=== PATIENT | female | born 1995 | race Caucasian/White ===

== ENCOUNTER 2018-06-02 23:01 | Emergency (ER) | payer OTHER ==
[2018-06-02] MEDS ORDERED: SUMAtriptan SUCCINATE 6 MG/0.5 ML VIAL SQ ONE (23:20)
[2018-06-02] MEDS ORDERED: KETOROLAC TROMETHAMINE 60 MG/2 ML VIAL IM ONE (23:52)
[2018-06-02] MEDS ORDERED: ONDANSETRON HCL 4 MG TAB.RAPDIS PO ONE (23:52)
[2018-06-02] MEDS ORDERED: diphenhydrAMINE HCL 50 MG/ML VIAL IM ONE (23:52)
--- NOTE | 2018-06-02 23:55 | ED Physician Documentation ---
Headache - HISTORIAN Historian: patient - HPI Stated Complaint: Headache Chief Complaint: Headache Onset: days ago () New Gradual Onset: No Severity: severe Quality: similar to previous Further Comments: yes (22 year old female patient presents with complaint of headache for past year. Was worked up by neurology with no findings. Has not seen PCP since last neurology visit. Is not on maintence medication. Rate pain 8/10. C/O photophobia and nausea. Is not covering eyes with light on.) - ROS NEURO/PSYCH: denies: confusion, anxiety, depression, fainting, other EYES/ENT: denies: sore throat, difficulty swallowing, sinus pain, drainage, other CVS/RESP: none GI/: denies: abdominal pain, diarrhea, problems urinating, incontinence, other MS/SKIN/LYMPH: denies: muscle aches, back pain, rash, skin lesions, swollen glands, other - PAST HX Medical History: hypertension, other (depression; headaches) Allergies/Adverse Reactions: Allergies Allergy/AdvReac Type Severity Reaction Status Date / Time No Known Allergies Allergy Unverified 06/02/18 23:24 Home Medications: Ambulatory Orders Medication Instructions Recorded FLUoxetine HCL [Prozac] 60 mg PO QD 06/02/18 Metoprolol Tartrate [Lopressor] 25 mg PO BID 06/02/18 clonazePAM [Klonopin] 0.5 mg PO BID 06/02/18 - SOCIAL HX Smoking History: non-smoker - Family HX Family History: denies: none - VITAL SIGNS Vital Signs: Vital Signs Temp Pulse Resp BP Pulse Ox 98.7 F 89 18 153/106 98 06/02/18 23:01 06/02/18 23:01 06/02/18 23:01 06/02/18 23:01 06/02/18 23:01 - REVIEWED ASSESSMENTS Nursing Assessment Reviewed: Yes Vitals Reviewed: Yes Progress - Progress Progress: Patient with very flat affect. Reports headache as "all over" with area of worse intensity in posterior occipital area. Discussed neurology work up, patient states she did not go back "because he didn't find anything". Encouraged headache journal and follow up with PCP next week. Patient does not wear her glasses as prescribed. Encouraged repeat eye exam and wearing glasses. ED Results Lab/Radiology - Orders Orders: ED Orders Category Date Time Status Ketorolac Tromethamine [Toradol] Med 06/02/18 23:52 Once 60 mg IM NOW ONE Ondansetron HCl Rapdis [Zofran Odt] Med 06/02/18 23:52 Once 4 mg PO NOW ONE SUMAtriptan SUCCINATE [Imitrex] Med 06/02/18 23:20 Discontinued 6 mg SQ NOW ONE diphenhydrAMINE HCL [Benadryl] Med 06/02/18 23:52 Once 25 mg IM NOW ONE Headache Physical Exam - EXAM General Appearance: mild distress EENT: no facial swelling, eyes nml inspection, PERRL, nml ENT, pharynx nml Respiratory: no resp distress, chest non-tender, breath sounds normal CVS: reg. 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 Limit your dose to less than 4 G per day. Alternate with Ibuprofen 600-800mg three times a day with food as needed. Do not take for more than 5 days in a row. Keep a daily headache journal Make a follow up appointment with Dr Santana for a plan of care. Condition: Stable Disposition: 01 HOME, SELF-CARE Decision to Admit: NO Decision Time: 23:59
[2018-06-03 00:33] VITALS: BP 146/80
== END 2018-06-03 00:30 | disposition home or self-care (01) ==
LOC: ED 23:01
DX: R51 Headache (principal)
CPT/HCPCS: A9270; J1200; J1885; J3030; 96372; 99282

== ENCOUNTER 2019-06-10 21:57 | Emergency (ER) | payer OTHER ==
--- NOTE | 2019-06-10 22:09 | ED Physician Documentation ---
Abdominal Pain - HISTORIAN Historian: patient - HPI Stated Complaint: generalized abdominal pain, nausea Chief Complaint: Abdominal Pain Additonal Information: Patient presents to ED with a 2 day history of nausea and generalized abdominal pain. Patient denies fever, chills, diarrhea, vomiting. Other family members have had similar symptoms. She also reports skin infection on left lower abdomen for past 3-4 days. She states she gets these sores on her abdomen occasionally and they heal, however, this sore has not healed and keeps draining. Onset: days ago (2) Duration: waxing, waning Timing: still present Context: denies: out of country travel Severity: moderate Quality: aching, dull Associated Symptoms: nausea. denies: vomiting, diarrhea Exacerbated by: food Relieved by: remaining still - ROS CONST: no problems GI/: none CVS/RESP: none EYES/ENT: none MS/SKIN/LYMPH: none NEURO/PSYCH: none - SOCIAL HX Smoking History: non-smoker Alcohol Use: none Drug Use: none - FAMILY HX Family History: none - PAST HX Past History: none Ischemic Bowel Risk Factors: none Other History: none Surgeries/Procedures: none Home Medications: Ambulatory Orders Medication Instructions Recorded FLUoxetine HCL [Prozac] 60 mg PO QD 06/02/18 Aripiprazole [Abilify] 10 mg PO DAILY 06/10/19 Cephalexin [Keflex] 500 mg PO Q6 #28 capsule 06/10/19 Metoprolol Tartrate [Lopressor] 25 mg PO BID 06/10/19 Ondansetron HCl Rapdis [Zofran Odt] 4 mg PO Q8 PRN #20 tab 06/10/19 Allergies/Adverse Reactions: Allergies Allergy/AdvReac Type Severity Reaction Status Date / Time No Known Allergies Allergy Verified 06/10/19 22:27 - VITAL SIGNS Vital Signs: Vital Signs Temp Pulse Resp BP Pulse Ox 97.6 F 58 L 18 135/64 100 06/10/19 22:10 06/10/19 22:10 06/10/19 22:10 06/10/19 22:10 06/10/19 22:10 - REVIEWED ASSESSMENTS Nursing Assessment Reviewed: Yes Vitals Reviewed: Yes ED Results Lab/Radiology - Lab Results Lab Results: UA - +2 BLOOD, LEUKOCTYE NEG HCG - negative CBC - WNL CMP - WNL - Radiology Radiology Impressions: Report Submission Date: Jun 10, 2019 10:53:38 PM 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 Findings: The lung bases are clear. The heart size is normal. The liver gallbladder pancreas spleen adrenals and bilateral kidneys are normal. No calculus or hydronephrosis. No bowel wall thickening or dilation is present. The appendix is normal. The unenhanced vascular structures are normal. There is no adenopathy present. The bladder and uterus are normal. There is no free fluid present. The osseous structures are intact with minimal degenerative change in lower lumbar spine. Impression: 1. No bowel wall thickening or dilation. 2. No CT correlate for patient's abdominal pain. Electronically signed on Jun 10, 2019 10:53:38 PM AWNING INSTALLER by: Abdullahi Rios - Orders Orders: ED Orders Category Date Time Status Place IV Lock 1T Care 06/10/19 22:[address] ABD & PELVIS W/O CON Stat Exams 06/10/19 Completed CBC/PLATELET/DIFF Routine Lab 06/10/19 22:45 Received CMP Routine Lab 06/10/19 22:45 Received HCG [URINE HCG] Stat Lab 06/10/19 22:15 Ordered UA W/MICRO IF INDICATED Routine Lab 06/10/19 22:11 Ordered 0.9 % Sodium Chloride [Normal Saline] 1,000 ml Med 06/10/19 22:17 Active IV Q1H Ondansetron HCl/Pf [Zofran] Med 06/10/19 22:17 Discontinued 4 mg IVP NOW ONE Abdominal Pain Physical Exam - Physical Exam General Appearance: no acute distress, alert EENT: DONNY NECK: normal inspection RESPIRATORY: no resp distress, chest non-tender, breath sounds normal CVS: reg rate & rhythm, heart sounds normal ABDOMEN: soft, normal bowel sounds, non-tender BACK: normal inspection, no CVA tenderness SKIN: warm/dry, normal color EXTREMITIES: non-tender, normal range of motion NEURO: oriented X3, mood/affect nml Vital Signs: Vital Signs Temp Pulse Resp BP Pulse Ox 97.6 F 58 L 18 135/64 100 06/10/19 22:10 06/10/19 22:10 06/10/19 22:10 06/10/19 22:10 06/10/19 22:10 Discharge Clincal Impression: Cellulitis, abdominal wall, Viral gastroenteritis Prescriptions: Cephalexin [Keflex] 500 mg PO Q6 #28 capsule Ondansetron HCl Rapdis [Zofran Odt] 4 mg PO Q8 PRN #20 tab PRN Reason: nausea/vomiting Referrals: Stefan Gracia MD [Primary Care Provider] - 2 Days Additional Instructions: 1. Take antibiotics until gone for skin infection 2. Zofran every 8 hours as needed for nausea/vomiting 3. Drink plenty of fluids to maintain proper hydration 4. Tylenol and/or Ibuprofen as needed for pain 5. Follow up with PCP within 1 week 6. Return to ER for new or worsening symptoms Condition: Stable Disposition: 01 HOME, SELF-CARE Decision to Admit: NO Date of Decison to Admit: 06/10/19 Decision Time: 23:01
[2019-06-10] MEDS: ONDANSETRON HCL/PF 4 MG/ 2ML VIAL IVP ONE (22:30)
[2019-06-10] MEDS: 0.9 % SODIUM CHLORIDE 1,000 ML IV ONE (22:50)
--- NOTE | 2019-06-10 22:59 | Diagnostic Imaging Report ---
PATIENT MR#: [id number] PATIENT PATIENT NAME: AMELIA TA DATE OF : 1995 REFERRING PHYSICIAN: Vianca Field EXAM DATE: 06/10/2019 ACCESSION NUMBER: [id number] EXAM DESCRIPTION: CT ABD PELVIS W/O CO CT abdomen pelvis without contrast History: mid abdominal pain and nausea for 2 days Technique: Transaxial computed tomographic images of the abdomen pelvis were out contrast according to standard protocol. Findings: The lung bases are clear. The heart size is normal. The liver gallbladder pancreas spleen adrenals and bilateral kidneys are normal. No calculus or hydr onephrosis. No bowel wall thickening or dilation is present. The appendix is normal. The unenhanced vascular structures are normal. There is no adenopathy present. The bladder and uter us are normal. There is no free fluid present. The osseous structures are intact with minimal degenerative change in lower lumbar spine. Impression: 1. No bowel wall thickening or dilation. 2. No CT correlate for patient's abdominal pain. Read by: Dr. Abdullahi Rios Transcribed by: Transcribed Date: Electronically signed by: Dr. Abdullahi Rios Date signed: 06/10/2019 10:58:02 PM
[2019-06-10 23:43] VITALS: BP 146/80
[2019-06-11 06:25] LABS: APPEARANCE,URINE CLEAR (CLEAR); COLOR,URINE YELLOW (YELLOW)
[2019-06-11 06:26] LABS: OCCULT BLOOD,URINE 2+ (NEGATIVE)
[2019-06-11 07:16] LABS: eGFR (Non-African) > 60
[2019-06-11 07:50] LABS: SEGMENTED NEUTROPHILS % 31 % (39-79)
== END 2019-06-10 23:35 | disposition home or self-care (01) ==
LOC: ED 21:57
DX: A08.4 Viral intestinal infection, unspecified (principal); L03.311 Cellulitis of abdominal wall
CPT/HCPCS: 74176; 80053; 81002; 81025; 85025; 96374; 99284; J2405; J7030; S1016